=== PATIENT | female | born 2005 | race African-American/Black ===

== ENCOUNTER 2025-05-07 08:09 | Emergency (ER) | payer BC, SELFPAY ==
[2025-05-07 08:10] VITALS: BP 120/78; PULSE 83; RESP 18; TEMP 36.6; O2SAT 100; BMI 25.7
--- NOTE | 2025-05-07 08:55 | EX.ED.VIS.HA ---
HPI History of Present Illness Chief Complaint: Headache Informant: patient Narrative Narrative: Patient is a 20-year-old female with history of migraines who is a college [employer] student. She is from [place]. She is presenting with particularly bad migraine headache. She states her headache started around 7 PM last night as pressure and pain behind her right eye and then pain in her neck that she describes as a stiffness that then goes to her whole body. She states this is typical for her migraines. She does note that she had 2 episodes of vomiting (last at 3 AM) patient continues to feel nauseous. She states ongoing nausea is a new symptom. She does note last night she felt that she was having shivers and sweats but does not have a thermometer to check her temperature. She took Tylenol last night does not anything this morning. She did take a couple bites of food to eat this morning was able to keep it down. She states she has had prior occipital nerve blocks and recent was prescribed Imitrex from her neurologist in [place] but her medicine is in [place] and she does not have it with her. She did recently travel to [place] for her birthday. No other complaints or concerns at this time. Denies any rash. [facility] Medical History Migraine Home Medications ?Medication ?Instructions ?Recorded ?Last Taken ?Type ondansetron 4 mg disintegrating 4 mg PO Q8H PRN PRN Nausea #10 tabs 05/07/25 Unknown Rx tablet sumatriptan succinate 50 mg tablet See Rx Instructions PO .COMPLEX 05/07/25 Unknown Rx (Imitrex) #10 tabs Allergy/AdvReac Type Severity Reaction Status Date / Time lactose Allergy Abd Verified 05/07/25 08:12 cramps/diarrhea pollen extracts (pollens) Allergy Shortness Verified 05/07/25 08:12 of breath Social History Smoking Status: Never smoker ROS ROS ED Constitutional Constitutional ED: Reports chills and sweats; Denies fever(s) Eyes Eyes: Reports other Details: Light sensitivity ENT ENT ED: Reports other Details: Mild nasal congestion Respiratory/Chest Respiratory/Chest: Denies cough or dyspnea Gastrointestinal Gastrointestinal: Reports nausea and vomiting; Denies abdominal pain or diarrhea Genitourinary Genitourinary ED: Reports urinary frequency and other Details: Reports chronic urinary frequency because she is on spironolactone, no acute change. Last menstrual period was about 3 weeks ago denies concern for ; Denies dysuria Musculoskeletal Musculoskeletal: Reports myalgias and neck pain; Denies arthralgias Integumentary Denies rash Neurologic Neurologic: Reports headache(s); Denies paresthesias or weakness Hematologic/Lymphatic Hematologic/Lymphatic: Denies easy bleeding or easy bruising EXAM Physical Exam Const Vital Signs: 05/07/25 08:10 05/07/25 10:10 Temperature 97.8 F Temperature Source Oral Pulse Rate 83 81 Respiratory Rate 18 14 Blood Pressure 120/78 118/76 Blood Pressure Mean 92 90 Pulse Ox 100 98 Oxygen Delivery Method Room Air Room Air Positive well nourished and well developed General Appearance ED: well developed and NAD HEENT Reports normocephalic, TM's clear and moist mucous membranes atraumatic Tympanic Membrane ED: Yes TM's clear Eyes PERRL and EOMs intact bilaterally Neck supple and no meningeal signs Resp normal respiratory effort and clear to auscultation bilaterally Cardio regular rate and regular rhythm GI non-tender Extremity normal to inspection and full ROM Neuro oriented x3 and CN's II-XII intact bilaterally Sensorium / Orientation: awake and alert Speech: speech normal Motor Exam: strength 5/5 throughout; Negative for general weakness Psych mental status grossly normal MDM MDM MDM Narrative Medical decision making narrative: Patient evaluated for migraine headache. Has a history of migraines. States this feels like her prior was except she is more nauseous than normal. Vital signs are normal. Headache started last night. She does not describe a thunderclap headache. She does not have any focal neurologic deficits on examination require CT imaging at this time. She denies concern for . Migraine cocktail including IV fluids, Toradol and Compazine administered. On repeat evaluation she is feeling much improved. Will be discharged home with instruction for Imitrex that she previous had prescribed. Will be given referral for primary care as well as neurology as she does not have any doctors in this area as a [employer] student. She is agreeable this plan of care. Given return precautions. Given a school note for today. Discharged home in stable improved condition Discharge Plan Triage Chief Complaint: Headache ED Provider: Rhona Samaniego Dx/Rx/DC Orders Clinical Impression: Headache, migraine, Nausea & vomiting Instructions: ED Headache Unspecified Prescriptions: New ondansetron 4 mg tablet,disintegrating 4 mg PO Q8H PRN PRN (Reason: Nausea) Qty: 10 0RF sumatriptan succinate [Imitrex] 50 mg tablet See Rx Instructions .ROUTE .COMPLEX Qty: 10 0RF Rx Instructions: take 1 tab at onset of headache; if no relief may repeat 1 tab after at least 2 hrs; max = 4 tabs/24 hr Stand Alone Forms: ED Work / School Excuse Primary Care Provider: Care Physician,No Primary Referrals: Phillip Rivera MD [Non-Staff -Ordering Privileges, Neurology] Mita Cloud [Non-Staff, Medical] [facility] Doctor,Out of [Non-Staff, Medical] Print Language: Chinese Disposition Disposition: Home, Self Care
[2025-05-07] MEDS: 0.9% Normal Saline (1000mL) 1,000 ML 999 ML IV (08:59)
[2025-05-07 10:10] VITALS: BP 118/76; PULSE 81; RESP 14; O2SAT 98
[2025-05-07 12:00] VITALS: BP 124/78; PULSE 76; RESP 16; TEMP 36.6; O2SAT 99
== END 2025-05-07 12:23 | disposition home or self-care (01) ==
PROVIDERS: Emergency Provider Emergency Medicine; Visit Provider Emergency Medicine
DX: G43.909 Migraine, unspecified, not intractable, without status migrainosus (principal); R11.2 Nausea with vomiting, unspecified
CPT/HCPCS: 96361; 96374; 99283; A4216